=== PATIENT | female | born 1975 | race Caucasian/White ===

== ENCOUNTER 2017-07-04 10:49 | Emergency (ER) | payer OTHER ==
[2017-07-04 11:17] VITALS: BP 120/78
--- NOTE | 2017-07-04 11:27 | UC ---
Ear Complaint HPI - HPI Summary HPI Summary: c/o ear pain left ear for past few days taking ibuprofen with little relief of pain. denies any other upper respiratory symptoms. has hx TMJ and broke neck 10 years ago - History of Current Complaint Chief Complaint: UCEar Stated Complaint: EAR PAIN, DIZZINESS Time Seen by Provider: 07/04/17 11:19 Hx Obtained From: Patient Joanne Last Menstrual Period: 06/24/17 Onset/Duration: Sudden Onset Severity Initially: Moderate Severity Currently: Moderate - Allergies/Home Medications Allergies/Adverse Reactions: Allergies Allergy/AdvReac Type Severity Reaction Status Date / Time No Known Allergies Allergy Verified 07/04/17 11:17 PMH/Surg Hx/FS Hx/Imm Hx Previously Healthy: Yes - Surgical History Surgical History: Yes Surgery Procedure, Year, and Place: tubal ligation. tonsillectomy - Social History Alcohol Use: Weekly Alcohol Amount: 5-6 drinks a week Substance Use Type: None Smoking Status (MU): Never Smoked Tobacco - Immunization History Most Recent Influenza Vaccination: none Review of Systems Constitutional: Negative Skin: Negative Eyes: Negative ENT: Ear Ache - left Respiratory: Negative Cardiovascular: Negative Gastrointestinal: Negative Genitourinary: Negative Is Patient Immunocompromised?: No All Other Systems Reviewed And Are Negative: Yes Physical Exam Triage Information Reviewed: Yes Appearance: Well-Appearing Vital Signs: Initial Vital Signs Temp 98.5 F 07/04/17 11:09 Pulse 68 07/04/17 11:09 Resp 16 07/04/17 11:09 BP 120/78 07/04/17 11:09 Pulse Ox 99 07/04/17 11:09 Vital Signs Reviewed: Yes Eye Exam: Normal ENT: Positive: TM bulging, TM red - left ear Neck exam: Normal Respiratory Exam: Normal Cardiovascular Exam: Normal Psychological Exam: Normal Skin Exam: Normal Ear Complaint Course/Dx - Course Course Of Treatment: take abx as directed with food to reduce gi upset. continue ibuprofen as directed every 6 hours for pain/fever. increase fluid intake daily while on abx to prevent dehydration. f/u pcp 1 week if symptoms not resolving or getting worse - Differential Dx/Diagnosis Provider Diagnoses: otitis media - left Discharge - Discharge Plan Condition: Good Disposition: HOME Prescriptions: Amoxicillin PO (*) [Amoxicillin 875 MG (*)] 875 mg PO BID 10 Days #20 tab Patient Education Materials: Otitis Media (ED) Referrals: No Primary Care Phys,NOPCP [Primary Care Provider] - 1 Week
== END 2017-07-04 11:44 | disposition home or self-care (01) ==
LOC: UCCORT 10:49
DX: H66.92 Otitis media, unspecified, left ear (principal); Z72.89 Other problems related to lifestyle
CPT/HCPCS: 99212; G0463

== ENCOUNTER 2019-02-03 08:04 | Emergency (ER) | payer OTHER ==
[2019-02-03 08:29] VITALS: BP 106/90
--- NOTE | 2019-02-03 08:43 | UC ---
UC General HPI - HPI Summary HPI Summary: [employer] worker - Pt cough, congestion, loss of voice, coughing fits at night. Pt states when she talks she can not breath and throat is sore. Pleasant 43 yo female c/o cough starting apprx 5 days ago. Denies associated sx at that time (no fever, no st, nonproductive). Thinks may have started as allergies, but not sure. 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 Last couple days, + sputum, color (?). Feels dizzy with coughing, and feels overall worse, prompting visit here. No rash. No sob perse. No GI issues. No issues reported. No hx asthma. - History of Current Complaint Chief Complaint: UCGeneralIllness Stated Complaint: ST,COUGH,CONGESTION Time Seen by Provider: 02/03/19 08:42 Hx Obtained From: Patient Hx Last Menstrual Period: 01/18/19 Pain Intensity: 0 - Allergy/Home Medications Allergies/Adverse Reactions: Allergies Allergy/AdvReac Type Severity Reaction Status Date / Time No Known Allergies Allergy Verified 02/03/19 08:29 PMH/Surg Hx/FS Hx/Imm Hx Previously Healthy: Yes Other History Of: Negative For: Anticoagulant Therapy - Surgical History Surgical History: Yes Surgery Procedure, Year, and Place: tubal ligation. tonsillectomy - Family History Known Family History: Positive: None - Social History Alcohol Use: Weekly Alcohol Amount: 5-6 drinks a week Substance Use Type: None Smoking Status (MU): Never Smoked Tobacco - Immunization History Most Recent Influenza Vaccination: none Review of Systems All Other Systems Reviewed And Are Negative: Yes Constitutional: Positive: Other - see hpi Skin: Positive: Negative - see hpi Eyes: Positive: Negative ENT: Positive: Other - ears plugged Respiratory: Positive: Cough Cardiovascular: Positive: Negative - see hpi Gastrointestinal: Positive: Negative Genitourinary: Positive: Negative Motor: Positive: Negative Neurovascular: Positive: Negative Musculoskeletal: Positive: Negative Neurological: Positive: Negative Psychological: Positive: Negative Is Patient Immunocompromised?: No Physical Exam Triage Information Reviewed: Yes Appearance: Well-Nourished - sitting up, conversing easily and appropriately Vital Signs: Initial Vital Signs Temp 97.7 F 02/03/19 08:25 Pulse 74 02/03/19 08:25 Resp 16 02/03/19 08:25 BP 106/90 02/03/19 08:25 Pulse Ox 100 02/03/19 08:25 Eye Exam: Normal ENT Exam: Other - TMs clement, mild cerumen eac bilat (dry) ENT: Positive: Pharyngeal erythema - mild post pharynx redness, no sores / uvula midline. Neck exam: Normal Neck: Positive: Supple, Nontender, No Lymphadenopathy Respiratory Exam: Other - BS equal + exp wheeze, no rtx. Respiratory: Positive: No respiratory distress, No accessory muscle use Cardiovascular Exam: Normal Cardiovascular: Positive: RRR, No Murmur, Pulses Normal, Brisk Capillary Refill Abdominal Exam: Normal Abdomen Description: Positive: Nontender Musculoskeletal Exam: Normal Neurological Exam: Normal - nonfocal Psychological Exam: Normal Skin Exam: Normal - nondiaphoretic. no visibe or reported rash Course/Dx - Course Course Of Treatment: reviewed coa / tx plan questions as posed answered to the best of my ability. - Diagnoses Provider Diagnosis: Bronchitis, Wheeze Discharge - Sign-Out/Discharge Documenting (check all that apply): Patient Departure All imaging exams completed and their final reports reviewed: No Studies - Discharge Plan Condition: Stable Disposition: HOME Prescriptions: Azithromyxin [place] (NF) [Z-[place] (Zithromax) 250 mg tabs #6] 2 tab PO .TODAY, THEN 1 DAILY #6 tab Benzonatate CAP* [Tessalon 100 MG CAP*] 100 mg PO TID PRN #30 cap PRN Reason: Cough predniSONE TAB* [Deltasone 10 MG TAB*] 10 mg PO DAILY #14 tab Patient Education Materials: Acute Bronchitis (ED), Wheezing (ED) Forms: *Work Release Referrals: Aarti Queen [Primary Care Provider] - Additional Instructions: Follow up with your primary care physician - call today to schedule follow up for end of next week. Seek medical attention for worse or new problems in the meantime. Humidified air. Consider antihistamine. - Billing Disposition and Condition Condition: STABLE Disposition: Home
[2019-02-03] MEDS ORDERED: Albuterol HFA INHALER* 8 gm MDI INH ONE ×2 (09:02→09:04)
== END 2019-02-03 09:20 | disposition home or self-care (01) ==
LOC: UCCORT 08:04
DX: J40 Bronchitis, not specified as acute or chronic (principal); R06.2 Wheezing
CPT/HCPCS: 99212; A9270-GY; G0463